=== PATIENT | male | born 1960 | race Caucasian/White ===

== ENCOUNTER 2021-10-09 08:11 | Emergency (ER) | payer OTHER, MEDICAID, SELFPAY ==
--- NOTE | ~2021-10-09 | CT_ITS ---
EXAMINATION: CT ABDOMEN AND PELVIS WITH CONTRAST CLINICAL INFORMATION: Central abdominal tenderness with history of AAA COMPARISON: None TECHNIQUE: Multidetector volumetric images were obtained from the superior aspect of the liver through the pubic symphysis following administration 85 mL of Omnipaque 350 intravenous contrast. Sagittal and coronal reformatted images were obtained on the technologist's workstation. Oral contrast: No This CT examination was performed using dose optimization techniques as appropriate, variously including the following: *Automated exposure control *Adjustment of mA and/or kV according to patient size (this includes techniques or standardized protocols for targeted exams where dose is matched to indication/reason for exam; i.e. extremities or head) *Use of iterative reconstruction technique DLP: 639 mGy-cm FINDINGS: LUNG BASES: Atelectasis or small area of infiltrate or chronic change in the lingula. 2 mm nodule at the right lung base. Image 3. LIVER, GALLBLADDER, AND BILIARY TREE: Low-density liver consistent with fatty change. Hepatitis could not be excluded. Status post cholecystectomy PANCREAS: Within normal limits. SPLEEN: Unremarkable. ADRENAL GLANDS: Unremarkable. KIDNEYS AND URETERS: The kidneys are normal in size, shape, and attenuation. No hydronephrosis, hydroureter, or calculi seen. No perinephric stranding. BLADDER: Mildly thick-walled bladder. GASTROINTESTINAL TRACT: The bowel pattern is felt to be nonobstructing. There is diverticulosis but no evidence for diverticulitis. The appendix is within normal limits. ABDOMINAL WALL: No significant hernia is appreciated. LYMPH NODES: Low-density retrocrural structures are noted. These could represent but low-density lymph nodes versus lobulated fluid collections of other etiology Otherwise there is no bulky adenopathy. VASCULAR: No aneurysmal change of the aorta. Sclerotic changes. Ectatic right greater than left common iliacs noted. PELVIC VISCERA: Prominent prostate. OSSEOUS STRUCTURES: Unremarkable. CT/CT abdomen pelvis w con IMPRESSION: No abdominal aortic aneurysm is seen here. Note is made of ectatic common iliacs. The bowel pattern is felt to be nonobstructing. Diverticulosis but no evidence for diverticulitis. There is no free fluid here. Low-density retrocrural structures as described above. Etiology is indeterminate. This could represent low density lymph node or lymphocele fluid collections other etiology. Recommend pre and postcontrast MRI to further evaluate versus short-term follow-up in 3 months for continued evaluation. Low-density liver may well represent fatty change. Hepatitis cannot be excluded. Small 2 mm nodule right lung base. If there are risk factors for lung malignancy recommend CT of the chest Thick-walled bladder and mildly prominent prostate. Fleischner guidelines were followed.
[2021-10-09 08:17] VITALS: BP 142/94; BP 160/99; PULSE 104; PULSE 109; RESP 17; TEMP 37.1; O2SAT 92; O2SAT 97; BMI 29.5
--- NOTE | 2021-10-09 08:19 | ECG_ITS ---
Test Reason : cp Blood Pressure : / mmHG Vent. Rate : 096 BPM Atrial Rate : 096 BPM P-R Int : 160 ms QRS Dur : 084 ms QT Int : 368 ms P-R-T Axes : 038 008 023 degrees QTc Int : 464 ms Normal sinus rhythm Normal ECG No previous ECGs available Referred By: Roxana Frederick Electronically Signed By:LACY MARR
--- NOTE | 2021-10-09 08:22 | ED_ITS ---
HPI - General Adult General Chief complaint: General Medical <SADIQ Garzon - Last Filed: 10/09/21 16:48> Stated complaint: ETOH/N/V/ABD PAIN <SADIQ Garzon - Last Filed: 10/09/21 16:48> Time Seen by Provider: 10/09/21 08:18 <SADIQ Garzon - Last Filed: 10/09/21 16:48> Source: patient and EMS <SADIQ Garzon - Last Filed: 10/09/21 16:48> Mode of arrival: EMS <SADIQ Garzon Last Filed: 10/09/21 16:48> Limitations: no limitations <SADIQ Garzon Last Filed: 10/09/21 16:48> History of Present Illness HPI narrative: 61 yo male with history of alcohol abuse and dependence, hx HTN, hx CHF (EF 35-40%), hx AAA (4.2 cm) s/p emergent cholecystecomy in 2020 at [facility] who presents to the ER for evaluation of abdominal pain with hopes to get into a detox. He reports he just got out of detox at the [facility] 3-4 weeks ago. He states he almost immediately went back to drinking, drinking 20- 30 nips of hard liquor per day. He reports his last intake was a couple of hours ago. He has had on and off abdominal pain and chest pains for the last week or so. He reports history of similar episodes. He states the chest pain comes and goes, is nonradiating, and worsens when walking or touching his chest wall. He reports vomiting several times in the last 24 hours, denies any blood in his vomitus, it is mostly just fluid. He is not eating solid food, he is spending all of his days drinking alcohol. <SADIQ Garzon - Last Filed: 10/09/21 16:48> MD complaint: Abdominal pain, chest pain, alcohol dependence <SADIQ Garzon - Last Filed: 10/09/21 16:48> Onset (ago): week(s) <SADIQ Garzon Last Filed: 10/09/21 16:48> Location: chest and abdomen <SADIQ Garzon Last Filed: 10/09/21 16:48> Radiation: non-radiation <SADIQ Garzon - Last Filed: 10/09/21 16:48> Severity: moderate <SADIQ Garzon - Last Filed: 10/09/21 16:48> Severity scale (1-10): 7 <SADIQ Garzon Last Filed: 10/09/21 16:48> Quality: burning and aching <SADIQ Garzon Last Filed: 10/09/21 16:48> Pain Consistency: intermittent <SADIQ Garzon - Last Filed: 10/09/21 16:48> Relieving factors: none <SADIQ Garzon Last Filed: 10/09/21 16:48> Exacerbating factors: eating <SADIQ Garzon - Last Filed: 10/09/21 16:48> Associated symptoms: chest pain, headaches, loss of appetite, malaise and nausea/vomiting <SADIQ Garzon - Last Filed: 10/09/21 16:48> Treatments prior to arrival: none <SADIQ Garzon Last Filed: 10/09/21 16:48> Related Data Home medications: Home Medications Medication Instructions Recorded Confirmed No Known Home Meds 10/10/21 10/10/21 <SADIQ Garzon Last Filed: 10/09/21 16:48> Allergies/adverse reactions: Allergies Allergy/AdvReac Type Severity Reaction Status Date / Time No Known Allergies Allergy Unverified 11/08/19 14:58 [No Known Allergies*] <SADIQ Garzon Last Filed: 10/09/21 16:48> Review of Systems Review of Systems: Constitutional: No Fever, No Chills ENT/Mouth: No sore throat, No Rhinorrhea, No Swallowing Difficulty Eyes: No Eye Pain, No Swelling, + Redness Cardiovascular: +Chest Pain, No SOB, No Orthopnea, No Edema Respiratory: No Cough, No Sputum, No Wheezing, No dyspnea Gastrointestinal: + Nausea, + Vomiting, No Diarrhea, + abdominal Pain, No Hematochezia, No Melena Genitourinary: No Dysuria, No Urinary Frequency, No Hematuria Musculoskeletal: No joint pain, No Myalgias Skin: No Skin Lesions, No rash Neuro: + Weakness, No Numbness, No Dizziness, + Headache Psych: + Anxiety/Panic, + Depression Heme/Lymph: No Bruising, No Lymphadenopathy Endocrine: No Polyuria, No Polydipsia <SADIQ Garzon - Last Filed: 10/09/21 16:48> [facility] Social History Social History: Social History Advance Directives: No Advance Directives Information Provided: No <SADIQ Garzon - Last Filed: 10/09/21 16:48> Physical Exam ED Vital Signs: Vital Signs - 24 hr 10/10/21 10:37 10/10/21 17:44 10/10/21 19:48 Temperature 98.7 F 98.1 F 97.6 F Pulse Rate 70 52 79 Respiratory Rate 16 20 16 Blood Pressure 133/80 168/88 H 145/92 H Pulse Oximetry 94 95 95 Oxygen Delivery Method Room Air Room Air Room Air 10/11/21 00:08 Temperature 98.1 F Pulse Rate 80 Respiratory Rate 16 Blood Pressure 166/97 H Pulse Oximetry 97 Oxygen Delivery Method Room Air BMI result Body Mass Index 29.5 <SADIQ Garzon - Last Filed: 10/09/21 16:48> Vital Signs - 24 hr 10/10/21 10:37 10/10/21 17:44 10/10/21 19:48 Temperature 98.7 F 98.1 F 97.6 F Pulse Rate 70 52 79 Respiratory Rate 16 20 16 Blood Pressure 133/80 168/88 H 145/92 H Pulse Oximetry 94 95 95 Oxygen Delivery Method Room Air Room Air Room Air 10/11/21 00:08 Temperature 98.1 F Pulse Rate 80 Respiratory Rate 16 Blood Pressure 166/97 H Pulse Oximetry 97 Oxygen Delivery Method Room Air BMI result Body Mass Index 29.5 <Jesus Lorenz MD - Last Filed: 10/11/21 07:56> Appearance: Alert. Oriented X3. No acute distress. Eyes: Pupils equal, round and reactive to light. Sclera injected bilaterally, nonicterus ENT: Pharynx normal. Neck: Normal inspection. Neck supple. CVS: Normal heart rate and rhythm. Pulses normal. Anterior chest wall tenderness throughout. Respiratory: No respiratory distress. Breath sounds normal. Abdomen: Soft wtih periumbilical tenderness and guarding, no rebound, normal +BS x4 Skin: Skin warm and dry. Normal skin color. Normal skin turgor. No rashes. Extremities: No lower extremity edema. Neuro: Oriented X 3. No motor deficit. No sensory deficit. Slow but steady on his feet <SADIQ Garzon - Last Filed: 10/09/21 16:48> Course Course Course Narrative: 7-year-old male with history of alcohol abuse and dependence, history withdrawal in the past, history of CHF, EF 35-40%, HTN who presents to the ER with abdominal pain, chest pain for the last week or so. He has been drinking heavily, 20-30 naps per day. He is seeking detox. On arrival to the ER he is tachycardic, he has central abdominal tenderness. Concern for possible pancreatitis. He is status post cholecystectomy in the past. No right upper quadrant tenderness, no right lower quadrant tenderness. Will plan to give IV fluids, Zofran and morphine for pain. Will check an alcohol level, he reports his last intake was a few hours ago. He is awake and alert. Dispo pending results and improvement. <SADIQ Garzon - Last Filed: 10/09/21 16:48> Reevaluation(s) Reevaluation #1: Labs showing stable leukopenia and thrombocytopenia. His LFTs are mildly elevated, most likely related to mild alcoholic hepatitis. He is status post cholecystectomy. He has no right upper quadrant tenderness. His CT scan is showing low-density liver, question fatty change. Hepatitis cannot be excluded. He also has a thick walled bladder, mildly prominent prost ate. He has a nonobstructing bowel gas pattern. Diverticulosis but no diverticulitis. There are low-density retrocrural structures - could represent low-density lymph nodes versus lobulated fluid collections of other etiology. Radiology recommending pre and post-contrast MRI for further evaluation versus short-term follow-up in 3 months doubt this is the cause of his acute pain. Will give a p.o. trial and reassess. His alcohol level is 300. He will need to be evaluated by cryolite recovery operator for detox. Will monitor for development of withdrawal. His troponin was 23, will repeat at the 3 hour gil to rule out ischemia, his EKG is normal. Physician observation started at 12:15pm. Patient placed in physician observation because patient is awaiting cryolite recovery operator evaluation for the detox At the time observation was started patient's vital signs were stable. Patient is alert and oriented. Neuro exam is non-focal. CV: RRR and lungs are clear. Will continue to monitor. <SADIQ Garzon - Last Filed: 10/09/21 16:48> Reevaluation #2: Second troponin trended down. He is complaining of nausea and increased anxiety. He was given dose of oral Ativan for CIWA of 10. He did intake with Gia Mitchell, awaiting a bed. Will continue monitor. <SADIQ Garzon - Last Filed: 10/09/21 16:48> Reevaluation #3: remains stable overnight, no events reported, remain detox level of care. (03/12/2021 07:56) <Jesus Lorenz MD - Last Filed: 10/11/21 07:56> Time: 07:55 <Jesus Lorenz MD - Last Filed: 10/11/21 07:56> Medical Decision Making Lab Data Result diagrams: : 10/09/21 08:30 10/09/21 08:30 <SADIQ Garzon - Last Filed: 10/09/21 16:48> Labs: Lab Results 10/09/21 10/09/21 10/09/21 Range/Units 08:30 08:30 08:30 WBC 4.6 L (4.8-10.8) X10*3/uL RBC 5.51 (4.60-5.80) X10*6/uL Hgb 16.7 (14.0-18.0) g/dl Hct 48.1 (42.0-52.0) % MCV 87.3 (80.0-98.0) fL MCH 30.3 (27.0-33.0) pg MCHC 34.7 (31.0-36.0) g/dl RDW 11.9 (11.0-16.0) % Plt Count 135 L (160-400) X10*3/uL MPV 9.9 (9.4-12.4) fL Immature Gran % (Auto) 0.2 (0.0-0.4) % Neut % (Auto) 61.2 (45-73) % Lymph % (Auto) 30.0 (20-40) % [place] % (Auto) 7.8 (2-11) % Eos % (Auto) 0.4 (0-4) % Baso % (Auto) 0.4 (0-2) % Lymph # (Auto) 1.4 (1.2-4.9) X10*3/uL [place] # (Auto) 0.4 (0.1-1.2) X10*3/uL Eos # (Auto) 0.0 (0.0-0.4) X10*3/uL Baso # (Auto) 0.0 (0.0-0.2) X10*3/uL Abs Immat Gran (auto) 0.01 (0.00-0.03) X10*3/uL Absolute Neuts (auto) 2.8 (2.0-8.3) x10*3/uL Absolute Nucleated RBC 0.000 (0.0-0.012) X10*3/uL Nucleated RBC % (auto) 0.0 (0.0-0.2) /100WBC Sodium 143 (135-145) mmol/L Potassium 4.2 (3.3-5.1) mmol/L Chloride 99 (96-108) mmol/L Carbon Dioxide 22 (22-29) mmol/L Anion Gap 26 H (12-20) BUN 15 (9-16) mg/dL Creatinine 0.91 (0.5-1.4) mg/dL Estim Creat Clear Calc 96.1 Estimated GFR > 60 Random Glucose 85 (60-115) mg/dL Calcium 8.5 (8.4-10.2) mg/dL Magnesium 2.1 (1.6-2.6) mg/dL Total Bilirubin 1.4 H (0.0-1.0) mg/dL Direct Bilirubin 0.7 H (0.0-0.5) mg/dL AST 78 H (5-37) U/L ALT 77 H (0-40) U/L Alkaline Phosphatase 66 (39-117) U/L Troponin I High Sens 23.3 (<3.5-35.0) ng/L Total Protein 7.1 (6.5-8.0) g/dL Albumin 4.3 (3.5-5.0) g/dL Lipase 48 (8-78) U/L Urine Color Urine Appearance Urine pH (5.0-8.0) Ur Specific [place] (1.005-1.025) Urine Protein (Neg-Trace) mg/dL Urine Glucose (UA) (Negative) mg/dL Urine Ketones (Negative) mg/dL Urine Blood (Negative) Urine Nitrite (Negative) Ur Leukocyte Esterase (Negative) Urine RBC (0-2) /HPF Urine WBC (0-5) /HPF Ur Squamous Epith Cells (0-2) /HPF Urine Bacteria (None Seen) Hyaline Casts (0-2) /LPF Granular Casts Urine Opiates Screen (Not Detect) Urine Fentanyl Screen (Not Detect) Ur Barbiturates Screen (Not Detect) Ur Phencyclidine Scrn (Not Detect) Ur Amphetamines Screen (Not Detect) U Benzodiazepines Scrn (Not Detect) Urine Cocaine Screen (Not Detect) U Marijuana (THC) Screen (Not Detect) Ethyl Alcohol 301 H* mg/dL COVID-19 (MICHELLE) (Negative) COVID-19 Clin Com 10/09/21 10/09/21 10/09/21 Range/Units 08:30 11:44 11:44 WBC (4.8-10.8) X10*3/uL RBC (4.60-5.80) X10*6/uL Hgb (14.0-18.0) g/dl Hct (42.0-52.0) % MCV (80.0-98.0) fL MCH (27.0-33.0) pg MCHC (31.0-36.0) g/dl RDW (11.0-16.0) % Plt Count (160-400) X10*3/uL MPV (9.4-12.4) fL Immature Gran % (Auto) (0.0-0.4) % Neut % (Auto) (45-73) % Lymph % (Auto) (20-40) % [place] % (Auto) (2-11) % Eos % (Auto) (0-4) % Baso % (Auto) (0-2) % Lymph # (Auto) (1.2-4.9) X10*3/uL [place] # (Auto) (0.1-1.2) X10*3/uL Eos # (Auto) (0.0-0.4) X10*3/uL Baso # (Auto) (0.0-0.2) X10*3/uL Abs Immat Gran (auto) (0.00-0.03) X10*3/uL Absolute Neuts (auto) (2.0-8.3) x10*3/uL Absolute Nucleated RBC (0.0-0.012) X10*3/uL Nucleated RBC % (auto) (0.0-0.2) /100WBC Sodium (135-145) mmol/L Potassium (3.3-5.1) mmol/L Chloride (96-108) mmol/L Carbon Dioxide (22-29) mmol/L Anion Gap (12-20) BUN (9-16) mg/dL Creatinine (0.5-1.4) mg/dL Estim Creat Clear Calc Estimated GFR Random Glucose (60-115) mg/dL Calcium (8.4-10.2) mg/dL Magnesium (1.6-2.6) mg/dL Total Bilirubin (0.0-1.0) mg/dL Direct Bilirubin (0.0-0.5) mg/dL AST (5-37) U/L ALT (0-40) U/L Alkaline Phosphatase (39-117) U/L Troponin I High Sens (<3.5-35.0) ng/L Total Protein (6.5-8.0) g/dL Albumin (3.5-5.0) g/dL Lipase (8-78) U/L Urine Color Yellow Urine Appearance Clear Urine pH 5.5 (5.0-8.0) Ur Specific [place] 1.020 (1.005-1.025) Urine Protein Trace (Neg-Trace) mg/dL Urine Glucose (UA) Negative (Negative) mg/dL Urine Ketones 40 (Negative) mg/dL Urine Blood Trace (Negative) Urine Nitrite Negative (Negative) Ur Leukocyte Esterase Negative (Negative) Urine RBC 0-2 (0-2) /HPF Urine WBC 0-5 (0-5) /HPF Ur Squamous Epith Cells 0-2 (0-2) /HPF Urine Bacteria None Seen (None Seen) Hyaline Casts 0-2 (0-2) /LPF Granular Casts Present Urine Opiates Screen POSITIVE H (Not Detect) Urine Fentanyl Screen Not Detected (Not Detect) Ur Barbiturates Screen Not Detected (Not Detect) Ur Phencyclidine Scrn Not Detected (Not Detect) Ur Amphetamines Screen Not Detected (Not Detect) U Benzodiazepines Scrn Not Detected (Not Detect) Urine Cocaine Screen Not Detected (Not Detect) U Marijuana (THC) Screen POSITIVE H (Not Detect) Ethyl Alcohol mg/dL COVID-19 (MICHELLE) Negative (Negative) COVID-19 Clin Com See Note 10/09/21 Range/Units 13:05 WBC (4.8-10.8) X10*3/uL RBC (4.60-5.80) X10*6/uL Hgb (14.0-18.0) g/dl Hct (42.0-52.0) % MCV (80.0-98.0) fL MCH (27.0-33.0) pg MCHC (31.0-36.0) g/dl RDW (11.0-16.0) % Plt Count (160-400) X10*3/uL MPV (9.4-12.4) fL Immature Gran % (Auto) (0.0-0.4) % Neut % (Auto) (45-73) % Lymph % (Auto) (20-40) % [place] % (Auto) (2-11) % Eos % (Auto) (0-4) % Baso % (Auto) (0-2) % Lymph # (Auto) (1.2-4.9) X10*3/uL [place] # (Auto) (0.1-1.2) X10*3/uL Eos # (Auto) (0.0-0.4) X10*3/uL Baso # (Auto) (0.0-0.2) X10*3/uL Abs Immat Gran (auto) (0.00-0.03) X10*3/uL Absolute Neuts (auto) (2.0-8.3) x10*3/uL Absolute Nucleated RBC (0.0-0.012) X10*3/uL Nucleated RBC % (auto) (0.0-0.2) /100WBC Sodium (135-145) mmol/L Potassium (3.3-5.1) mmol/L Chloride (96-108) mmol/L Carbon Dioxide (22-29) mmol/L Anion Gap (12-20) BUN (9-16) mg/dL Creatinine (0.5-1.4) mg/dL Estim Creat Clear Calc Estimated GFR Random Glucose (60-115) mg/dL Calcium (8.4-10.2) mg/dL Magnesium (1.6-2.6) mg/dL Total Bilirubin (0.0-1.0) mg/dL Direct Bilirubin (0.0-0.5) mg/dL AST (5-37) U/L ALT (0-40) U/L Alkaline Phosphatase (39-117) U/L Troponin I High Sens 21.4 (<3.5-35.0) ng/L Total Protein (6.5-8.0) g/dL Albumin (3.5-5.0) g/dL Lipase (8-78) U/L Urine Color Urine Appearance Urine pH (5.0-8.0) Ur Specific [place] (1.005-1.025) Urine Protein (Neg-Trace) mg/dL Urine Glucose (UA) (Negative) mg/dL Urine Ketones (Negative) mg/dL Urine Blood (Negative) Urine Nitrite (Negative) Ur Leukocyte Esterase (Negative) Urine RBC (0-2) /HPF Urine WBC (0-5) /HPF Ur Squamous Epith Cells (0-2) /HPF Urine Bacteria (None Seen) Hyaline Casts (0-2) /LPF Granular Casts Urine Opiates Screen (Not Detect) Urine Fentanyl Screen (Not Detect) Ur Barbiturates Screen (Not Detect) Ur Phencyclidine Scrn (Not Detect) Ur Amphetamines Screen (Not Detect) U Benzodiazepines Scrn (Not Detect) Urine Cocaine Screen (Not Detect) U Marijuana (THC) Screen (Not Detect) Ethyl Alcohol mg/dL COVID-19 (MICHELLE) (Negative) COVID-19 Clin Com <SADIQ Garzon - Last Filed: 10/09/21 16:48> Lab Results 10/09/21 10/09/21 10/09/21 Range/Units 08:30 08:30 08:30 WBC 4.6 L (4.8-10.8) X10*3/uL RBC 5.51 (4.60-5.80) X10*6/uL Hgb 16.7 (14.0-18.0) g/dl Hct 48.1 (42.0-52.0) % MCV 87.3 (80.0-98.0) fL MCH 30.3 (27.0-33.0) pg MCHC 34.7 (31.0-36.0) g/dl RDW 11.9 (11.0-16.0) % Plt Count 135 L (160-400) X10*3/uL MPV 9.9 (9.4-12.4) fL Immature Gran % (Auto) 0.2 (0.0-0.4) % Neut % (Auto) 61.2 (45-73) % Lymph % (Auto) 30.0 (20-40) % [place] % (Auto) 7.8 (2-11) % Eos % (Auto) 0.4 (0-4) % Baso % (Auto) 0.4 (0-2) % Lymph # (Auto) 1.4 (1.2-4.9) X10*3/uL [place] # (Auto) 0.4 (0.1-1.2) X10*3/uL Eos # (Auto) 0.0 (0.0-0.4) X10*3/uL Baso # (Auto) 0.0 (0.0-0.2) X10*3/uL Abs Immat Gran (auto) 0.01 (0.00-0.03) X10*3/uL Absolute Neuts (auto) 2.8 (2.0-8.3) x10*3/uL Absolute Nucleated RBC 0.000 (0.0-0.012) X10*3/uL Nucleated RBC % (auto) 0.0 (0.0-0.2) /100WBC Sodium 143 (135-145) mmol/L Potassium 4.2 (3.3-5.1) mmol/L Chloride 99 (96-108) mmol/L Carbon Dioxide 22 (22-29) mmol/L Anion Gap 26 H (12-20) BUN 15 (9-16) mg/dL Creatinine 0.91 (0.5-1.4) mg/dL Estim Creat Clear Calc 96.1 Estimated GFR > 60 Random Glucose 85 (60-115) mg/dL Calcium 8.5 (8.4-10.2) mg/dL Magnesium 2.1 (1.6-2.6) mg/dL Total Bilirubin 1.4 H (0.0-1.0) mg/dL Direct Bilirubin 0.7 H (0.0-0.5) mg/dL AST 78 H (5-37) U/L ALT 77 H (0-40) U/L Alkaline Phosphatase 66 (39-117) U/L Troponin I High Sens 23.3 (<3.5-35.0) ng/L Total Protein 7.1 (6.5-8.0) g/dL Albumin 4.3 (3.5-5.0) g/dL Lipase 48 (8-78) U/L Urine Color Urine Appearance Urine pH (5.0-8.0) Ur Specific [place] (1.005-1.025) Urine Protein (Neg-Trace) mg/dL Urine Glucose (UA) (Negative) mg/dL Urine Ketones (Negative) mg/dL Urine Blood (Negative) Urine Nitrite (Negative) Ur Leukocyte Esterase (Negative) Urine RBC (0-2) /HPF Urine WBC (0-5) /HPF Ur Squamous Epith Cells (0-2) /HPF Urine Bacteria (None Seen) Hyaline Casts (0-2) /LPF Granular Casts Urine Opiates Screen (Not Detect) Urine Fentanyl Screen (Not Detect) Ur Barbiturates Screen (Not Detect) Ur Phencyclidine Scrn (Not Detect) Ur Amphetamines Screen (Not Detect) U Benzodiazepines Scrn (Not Detect) Urine Cocaine Screen (Not Detect) U Marijuana (THC) Screen (Not Detect) Ethyl Alcohol 301 H* mg/dL COVID-19 (MICHELLE) (Negative) COVID-19 Clin Com 10/09/21 10/09/21 10/09/21 Range/Units 08:30 11:44 11:44 WBC (4.8-10.8) X10*3/uL RBC (4.60-5.80) X10*6/uL Hgb (14.0-18.0) g/dl Hct (42.0-52.0) % MCV (80.0-98.0) fL MCH (27.0-33.0) pg MCHC (31.0-36.0) g/dl RDW (11.0-16.0) % Plt Count (160-400) X10*3/uL MPV (9.4-12.4) fL Immature Gran % (Auto) (0.0-0.4) % Neut % (Auto) (45-73) % Lymph % (Auto) (20-40) % [place] % (Auto) (2-11) % Eos % (Auto) (0-4) % Baso % (Auto) (0-2) % Lymph # (Auto) (1.2-4.9) X10*3/uL [place] # (Auto) (0.1-1.2) X10*3/uL Eos # (Auto) (0.0-0.4) X10*3/uL Baso # (Auto) (0.0-0.2) X10*3/uL Abs Immat Gran (auto) (0.00-0.03) X10*3/uL Absolute Neuts (auto) (2.0-8.3) x10*3/uL Absolute Nucleated RBC (0.0-0.012) X10*3/uL Nucleated RBC % (auto) (0.0-0.2) /100WBC Sodium (135-145) mmol/L Potassium (3.3-5.1) mmol/L Chloride (96-108) mmol/L Carbon Dioxide (22-29) mmol/L Anion Gap (12-20) BUN (9-16) mg/dL Creatinine (0.5-1.4) mg/dL Estim Creat Clear Calc Estimated GFR Random Glucose (60-115) mg/dL Calcium (8.4-10.2) mg/dL Magnesium (1.6-2.6) mg/dL Total Bilirubin (0.0-1.0) mg/dL Direct Bilirubin (0.0-0.5) mg/dL AST (5-37) U/L ALT (0-40) U/L Alkaline Phosphatase (39-117) U/L Troponin I High Sens (<3.5-35.0) ng/L Total Protein (6.5-8.0) g/dL Albumin (3.5-5.0) g/dL Lipase (8-78) U/L Urine Color Yellow Urine Appearance Clear Urine pH 5.5 (5.0-8.0) Ur Specific [place] 1.020 (1.005-1.025) Urine Protein Trace (Neg-Trace) mg/dL Urine Glucose (UA) Negative (Negative) mg/dL Urine Ketones 40 (Negative) mg/dL Urine Blood Trace (Negative) Urine Nitrite Negative (Negative) Ur Leukocyte Esterase Negative (Negative) Urine RBC 0-2 (0-2) /HPF Urine WBC 0-5 (0-5) /HPF Ur Squamous Epith Cells 0-2 (0-2) /HPF Urine Bacteria None Seen (None Seen) Hyaline Casts 0-2 (0-2) /LPF Granular Casts Present Urine Opiates Screen POSITIVE H (Not Detect) Urine Fentanyl Screen Not Detected (Not Detect) Ur Barbiturates Screen Not Detected (Not Detect) Ur Phencyclidine Scrn Not Detected (Not Detect) Ur Amphetamines Screen Not Detected (Not Detect) U Benzodiazepines Scrn Not Detected (Not Detect) Urine Cocaine Screen Not Detected (Not Detect) U Marijuana (THC) Screen POSITIVE H (Not Detect) Ethyl Alcohol mg/dL COVID-19 (MICHELLE) Negative (Negative) COVID-19 Clin Com See Note 10/09/21 Range/Units 13:05 WBC (4.8-10.8) X10*3/uL RBC (4.60-5.80) X10*6/uL Hgb (14.0-18.0) g/dl Hct (42.0-52.0) % MCV (80.0-98.0) fL MCH (27.0-33.0) pg MCHC (31.0-36.0) g/dl RDW (11.0-16.0) % Plt Count (160-400) X10*3/uL MPV (9.4-12.4) fL Immature Gran % (Auto) (0.0-0.4) % Neut % (Auto) (45-73) % Lymph % (Auto) (20-40) % [place] % (Auto) (2-11) % Eos % (Auto) (0-4) % Baso % (Auto) (0-2) % Lymph # (Auto) (1.2-4.9) X10*3/uL [place] # (Auto) (0.1-1.2) X10*3/uL Eos # (Auto) (0.0-0.4) X10*3/uL Baso # (Auto) (0.0-0.2) X10*3/uL Abs Immat Gran (auto) (0.00-0.03) X10*3/uL Absolute Neuts (auto) (2.0-8.3) x10*3/uL Absolute Nucleated RBC (0.0-0.012) X10*3/uL Nucleated RBC % (auto) (0.0-0.2) /100WBC Sodium (135-145) mmol/L Potassium (3.3-5.1) mmol/L Chloride (96-108) mmol/L Carbon Dioxide (22-29) mmol/L Anion Gap (12-20) BUN (9-16) mg/dL Creatinine (0.5-1.4) mg/dL Estim Creat Clear Calc Estimated GFR Random Glucose (60-115) mg/dL Calcium (8.4-10.2) mg/dL Magnesium (1.6-2.6) mg/dL Total Bilirubin (0.0-1.0) mg/dL Direct Bilirubin (0.0-0.5) mg/dL AST (5-37) U/L ALT (0-40) U/L Alkaline Phosphatase (39-117) U/L Troponin I High Sens 21.4 (<3.5-35.0) ng/L Total Protein (6.5-8.0) g/dL Albumin (3.5-5.0) g/dL Lipase (8-78) U/L Urine Color Urine Appearance Urine pH (5.0-8.0) Ur Specific [place] (1.005-1.025) Urine Protein (Neg-Trace) mg/dL Urine Glucose (UA) (Negative) mg/dL Urine Ketones (Negative) mg/dL Urine Blood (Negative) Urine Nitrite (Negative) Ur Leukocyte Esterase (Negative) Urine RBC (0-2) /HPF Urine WBC (0-5) /HPF Ur Squamous Epith Cells (0-2) /HPF Urine Bacteria (None Seen) Hyaline Casts (0-2) /LPF Granular Casts Urine Opiates Screen (Not Detect) Urine Fentanyl Screen (Not Detect) Ur Barbiturates Screen (Not Detect) Ur Phencyclidine Scrn (Not Detect) Ur Amphetamines Screen (Not Detect) U Benzodiazepines Scrn (Not Detect) Urine Cocaine Screen (Not Detect) U Marijuana (THC) Screen (Not Detect) Ethyl Alcohol mg/dL COVID-19 (MICHELLE) (Negative) COVID-19 Clin Com <Jesus Lorenz MD - Last Filed: 10/11/21 07:56> ECG Data Attestation: I personally reviewed and interpreted this ECG as follows: <SADIQ Garzon - Last Filed: 10/09/21 16:48> Prior ECG tracings: available for review <SADIQ Garzon - Last Filed: 10/09/21 16:48> Interpretation: Normal sinus rhythm, heart rate 96 beats per minute, normal HI interval, normal QTC, no ST segment elevations or depressions. <SADIQ Garzon - Last Filed: 10/09/21 16:48> Discharge Plan Discharge Clinical Impression: Alcohol intoxication <SADIQ Garzon - Last Filed: 10/09/21 16:48> Patient Disposition: Home, Self-Care <SADIQ Garzon - Last Filed: 10/09/21 16:48> Instructions: Alcohol Use Disorder (ED) <SADIQ Garzon - Last Filed: 10/09/21 16:48> Additional Instructions: Present directly to [facility] for detox. Do not drink alcohol or use illicit drugs. Your CT scan showed: No abdominal aortic aneurysm is seen here. Note is made of ectatic common iliacs. ? The bowel pattern is felt to be nonobstructing. Diverticulosis but no evidence for diverticulitis. There is no free fluid here. ? Low-density retrocrural structures as described above. Etiology is indeterminate. This could represent low density lymph node or lymphocele fluid collections other etiology. Recommend pre and postcontrast MRI to further evaluate versus short-term follow-up in 3months for continued evaluation. ? Low-density liver may well represent fatty change. Hepatitis cannot be excluded. ? Small 2 mm nodule right lung base. If there are risk factors for lung malignancy recommend CT of the chest ? Thick-walled bladder and mildly prominent prostate. ? <SADIQ Garzon - Last Filed: 10/09/21 16:48> Prescriptions: No Action No Known Home Meds <SADIQ Garzon Last Filed: 10/09/21 16:48>
[2021-10-09 08:34] LABS: MANUAL DIFF FLAG NO
[2021-10-09] MEDS: 0.9 % Sodium Chloride 1,000 ML 999 ML IVCONT (08:36)
[2021-10-09] MEDS: Morphine Sulfate 4 MG/ML CARTRIDGE IVPUSH (08:37)
[2021-10-09] MEDS: ondansetron HCL 4 MG/2 ML VIAL IVPUSH ×2 (08:38→22:33)
[2021-10-09 08:40] LABS: Basophils Percent Auto 0.4 % (0-2); Eosinophils Percent Auto 0.4 % (0-4); Hematocrit 48.1 % (42.0-52.0); Hemoglobin 16.7 g/dl (14.0-18.0); Imm Gran Abs Auto 0.01 X10*3/uL (0.00-0.03); Imm Gran Pct Auto 0.2 % (0.0-0.4); Lymphocytes Absolute Auto 1.4 X10*3/uL (1.2-4.9); Mean Corpuscular HGB Conc 34.7 g/dl (31.0-36.0); Mean Corpuscular Hemoglobin 30.3 pg (27.0-33.0); Mean Corpuscular Volume 87.3 fL (80.0-98.0); Mean Platelet Volume 9.9 fL (9.4-12.4); Monocytes Absolute Auto 0.4 X10*3/uL (0.1-1.2); Monocytes Percent Auto 7.8 % (2-11); Neutrophils Absolute Auto 2.8 x10*3/uL (2.0-8.3); Neutrophils Percent Auto 61.2 % (45-73); Platelet Count 135 X10*3/uL (160-400); Red Blood Count 5.51 X10*6/uL (4.60-5.80); Red Cell Distribution Width 11.9 % (11.0-16.0); White Blood Count 4.6 X10*3/uL (4.8-10.8)
[2021-10-09 08:53] LABS: COVID-19 Test Negative (Negative); IDNOW Serial# 16C4AD1C
[2021-10-09 08:55] LABS: Alanine Aminotransferase 77 U/L (0-40); Albumin Level 4.3 g/dL (3.5-5.0); Alkaline Phosphatase 66 U/L (39-117); Anion Gap 26 (12-20); Aspartate Amino Transferase 78 U/L (5-37); Bilirubin Direct 0.7 mg/dL (0.0-0.5); Bilirubin Total 1.4 mg/dL (0.0-1.0); Blood Urea Nitrogen 15 mg/dL (9-16); Calcium 8.5 mg/dL (8.4-10.2); Carbon Dioxide 22 mmol/L (22-29); Chloride 99 mmol/L (96-108); Creatinine Clr Calc Pharmacy 96.1; Estimated Glomerular Filt Rate > 60; Ethanol 301 mg/dL; Glucose Random 85 mg/dL (60-115); Lipase 48 U/L (8-78); Magnesium 2.1 mg/dL (1.6-2.6); Potassium 4.2 mmol/L (3.3-5.1); Sodium 143 mmol/L (135-145); Total Protein 7.1 g/dL (6.5-8.0)
[2021-10-09 09:00] LABS: Troponin-I High Sensitivity 23.3 ng/L (<3.5-35.0)
[2021-10-09] MEDS: iohexoL 350 MG/ML 100 ML INFUS..BTL 85 ML IV (09:44)
[2021-10-09 11:40] VITALS: BP 145/83; PULSE 85; RESP 13; O2SAT 93
[2021-10-09 12:17] LABS: Appearance Urine Clear; Color Urine Yellow; Glucose Urine UA Negative (Negative); Leukocyte Esterase Urine Negative (Negative); Nitrite Urine Negative (Negative); PH 5.5 (5.0-8.0); Urine Blood Trace (Negative); Urine Ketones 40 mg/dL (Negative); Urine Protein Trace mg/dL (Neg-Trace)
[2021-10-09 12:28] LABS: Granular Casts Urine Present
[2021-10-09 12:29] LABS: Bacteria Urine None Seen (None Seen); Hyaline Casts Urine 0-2 /LPF (0-2); RBC Urine 0-2 /HPF (0-2); Squamous Epithelial Cell Urine 0-2 /HPF (0-2); WBC Urine 0-5 /HPF (0-5)
[2021-10-09 12:35] LABS: Amphetamine Screen Urine Not Detected (Not Detect); Barbiturates, Urine Not Detected (Not Detect); Benzodiazepines Screen Urine Not Detected (Not Detect); Cannabinoid Screen Urine POSITIVE (Not Detect); Cocaine Screen Urine Not Detected (Not Detect); Fentanyl, urine Not Detected (Not Detect); Opiate Screen Urine POSITIVE (Not Detect); Phencyclidine Screen Urine Not Detected (Not Detect)
--- NOTE | 2021-10-09 13:06 | PC.NURSE ---
sr on monitor, no signs of withdrawl, sleeping on/off, drinking [place] heri, nad
[2021-10-09 13:07] VITALS: PULSE 94; RESP 17; O2SAT 97
[2021-10-09 13:31] LABS: Troponin-I High Sensitivity 21.4 ng/L (<3.5-35.0)
--- NOTE | 2021-10-09 14:39 | MHC.RECOVRN ---
Met with pt in ED11 to discuss ATS. Pt informed [facility] a bed available and would like to do a phone screen. Pt agreeable, on phone now to complete intake. Referral also sent.
[2021-10-09 15:47] VITALS: BP 138/84; PULSE 89; RESP 15; O2SAT 92
--- NOTE | 2021-10-09 15:51 | PC.NURSE ---
pt a&o3, vss, pt reporting 8/10 headache, pt requesting ice water, reports nausea and light sensitivity, CIWA = 10. provider notified, no new orders at this time.
[2021-10-09] MEDS: LORazepam 1 MG TABLET PO (15:58)
[2021-10-09] MEDS: Ondansetron ODT 4 MG TAB.RAPDIS TRANSLINGU (15:58)
--- NOTE | 2021-10-09 15:59 | PC.NURSE ---
medicated per provider order, pt provided w eye mask for light sensitivity, and given ice water.
--- NOTE | 2021-10-09 19:53 | PC.NURSE ---
pt reporting 7/10 headache, CIWA = 9, spoke w coach operator to determine next steps in pts care plan. coach operator to contact [facility] Garr[facility].
[2021-10-09 19:55] VITALS: BP 152/79; PULSE 83; RESP 15; TEMP 37.1; O2SAT 91
--- NOTE | 2021-10-09 20:00 | PC.NURSE ---
provider notified RE CIWA and headache.
[2021-10-09] MEDS: Acetaminophen 325 MG TABLET 650 MG PO (21:32)
[2021-10-09] MEDS: chlordiazePOXIDE HCl 25 MG CAPSULE PO ×2 (21:33→22:32)
--- NOTE | 2021-10-09 21:35 | MHC.RECOVSUP ---
? Reason for consult:ETOH o? Current location:ED11? o? Identified substance use concern:? -? Withdrawal -? Seeking ATS (detox) ?? Intervention: o? ATS bed search started/completed/in process ? Plan: o? Bed search in progress to [facility] o? Follow up tomorrow? ? Additional information:PT completed the phone screen, no one followed up, I came in at 6, called [facility] but they had no beds, called other facilities, no beds available, please follow up tomorrow!
--- NOTE | 2021-10-09 21:37 | PC.NURSE ---
pt medicated per provider order, CIWA = 13, o2 stat high 80s on RA, O2 @ 2L applied via nasal cannula and sat @ 95%.
[2021-10-09 22:30] VITALS: BP 162/88; PULSE 73; RESP 12; O2SAT 95
--- NOTE | 2021-10-10 01:21 | PC.NURSE ---
pt a&ox3, tearful, reports that headache has improved slightly, nausea improved, pt still having full body tremors, vss, CIWA = 12. provider notified.
[2021-10-10 02:00] VITALS: PULSE 60; RESP 16; O2SAT 92
[2021-10-10] MEDS: Midazolam HCl/PF 2 MG/2 ML VIAL IVPUSH (02:55)
[2021-10-10 07:14] VITALS: BP 155/90; PULSE 59; RESP 18; O2SAT 93
[2021-10-10 10:37] VITALS: BP 133/80; PULSE 70; RESP 16; TEMP 37.1; O2SAT 94
--- NOTE | 2021-10-10 11:03 | PC.NURSE ---
pt resting comfortably, reports having a headache. NAYLA a 3 at this time. Em value stream coach working on detox placement for the pt. he remains alert and oriented.
--- NOTE | 2021-10-10 11:10 | MHC.RECOVRN ---
T/W met w/ pt, pt alert, oriented watching tv upon entering room. Pt states body is feeling sore. Pt states intersted in Detox treatment still at this time, pt wants to stay in [facility] area. T/W checked on status of referral at [facility], which was placed last night. [facility] RN team reviewing pt for admission, t/w will f/u with [facility].
[2021-10-10] MEDS: Ibuprofen 800 MG TABLET PO (11:23)
--- NOTE | 2021-10-10 12:08 | MHC.RECOVRN ---
T/W met w/ pt, pt sleeping, awoke to verbal stimuli. T/W informed pt that [facility] has declined ATS admission due to clinical acuity. T/W let pt know that t/w placed [facility] detox referral this a.m., waiting on status of [facility] referral. T/W discussed [facility], pt not interersted in [facility] at this time. Per pt request, t/w will f/u w/ [facility] and not [facility]. Pts RN aware.
[2021-10-10] MEDS: LORazepam 1 MG TABLET PO (15:30)
--- NOTE | 2021-10-10 16:58 | PC.NURSE ---
[facility] - pt will not be accepted there as he will need a higher level of care . CARE team made aware.
[2021-10-10 17:44] VITALS: BP 168/88; PULSE 52; RESP 20; TEMP 36.7; O2SAT 95
[2021-10-10] MEDS: Acetaminophen 325 MG TABLET 650 MG PO (18:41)
[2021-10-10] MEDS: Ondansetron ODT 4 MG TAB.RAPDIS TRANSLINGU (18:56)
[2021-10-10 19:48] VITALS: BP 145/92; PULSE 79; RESP 16; TEMP 36.4; O2SAT 95
[2021-10-10] MEDS: LORazepam 1 MG TABLET 2 MG PO (20:20)
[2021-10-11 00:08] VITALS: BP 166/97; PULSE 80; RESP 16; TEMP 36.7; O2SAT 97
[2021-10-11] MEDS: LORazepam 1 MG TABLET 2 MG PO ×2 (01:43→07:52)
--- NOTE | 2021-10-11 06:31 | PC.NURSE ---
Patient slept through the night, no distress observed/reported, Ativan 2 mg po administered @ 2019 & 0143 for withdrawal comfort, patient's disposition is detox bed search, defensive line coach coordinating bed at [facility], behavior pleasant and non concerning, patient exhibits alcoholic tremors, no home medication, will continue to monitor.
--- NOTE | 2021-10-11 10:39 | MHC.RECOVRN ---
Addendum entered by Michelle East RN 10/11/21 11:35: T/W inquired about detox at [facility], no information yet on inpatient ATS services available. T/W discussed this w/ pt, pt not interested in [facility]. T/W left recovery resources for pt to review. Pt verbalized understanding. Original Note: T/W met w/ pt, pt alert, watching t.v upon entering room. T/W and pt discussed that at [facility] and [facility] have denied pt for ATS due to medical acuity. T/W discussed [facility] as option, pt states has concerns about belongings that are at friends house. Pt request [facility] services for ATS treatment. T/W inquired about [facility] ATS, left voicemail in regard to services offered, at this time, no referral placed as pt has declined [facility]. Nurse aware.
--- NOTE | 2021-10-11 13:43 | PC.NURSE ---
attempted to d/c pt - he reports he never refused [facility] as an option aside from multiple notes from Recovery team reporting that he has. pt currently refusing to leave, reporting he has no where to go.
== END 2021-10-11 15:06 | disposition home or self-care (01) ==
PROVIDERS: Physician Assistant; Emergency Provider Student in an Organized Health Care Education/Training Program; PCP Family Medicine
DX: F10.239 Alcohol dependence with withdrawal, unspecified (principal); R07.89 Other chest pain; R79.89 Other specified abnormal findings of blood chemistry; R51.9 Headache, unspecified; I10 Essential (primary) hypertension; R10.9 Unspecified abdominal pain; Y90.8 Blood alcohol level of 240 mg/100 ml or more; Z20.822 Contact with and (suspected) exposure to COVID-19; Z79.899 Other long term (current) drug therapy; Z71.41 Alcohol abuse counseling and surveillance of alcoholic
CPT/HCPCS: 36415; 74177; 80048; 80076; 80307; 81001; 82077; 83690; 83735; 84484; 85025; 87635; 93005; 96361; 96374; 96375; 96376; 99285; J2250; J2270; J2405; Q9967